=== PATIENT | female | born 2000 | race Caucasian/White ===

== ENCOUNTER 2019-10-17 18:42 | Inpatient (IN) | payer OTHER, SELFPAY ==
--- NOTE | ~2019-10-17 | XR_ITS ---
EXAMINATION: XR chest 1V portable 10/17/2019 19:52 INDICATION: Shortness of breath, nausea and vomiting PROCEDURE: AP portable chest COMPARISON: 11/23/2008 FINDINGS: The lungs are clear. The cardiomediastinal silhouette is within normal limits. There are no pleural effusions. There is no pneumothorax suspected. IMPRESSION: 1: NO ACUTE CARDIOPULMONARY DISEASE. Reviewed, dictated and finalized at location A.
[2019-10-17 18:55] VITALS: BP 115/62; PULSE 127; RESP 18; TEMP 37.6; O2SAT 97
--- NOTE | 2019-10-17 19:14 | ED.GENADULT ---
HPI - General Adult General Chief complaint: Recheck/Abnormal Lab/Rx Stated complaint: N/V DIABETIC ACCUCK 400'S Time Seen by Provider: 10/17/19 19:05 Source: patient History of Present Illness HPI narrative: Patient is a 19 y/o female complaining of nausea and vomiting since this morning. She states that she vomited greenish material. There is no alleviating or exacerbating factor. She has no abdominal pain or diarrhea. She has mild SOB and cough. She has no fever. She is on insulin pump for diabetes. Related Data Allergies Allergy/AdvReac Type Severity Reaction Status Date / Time No Known Allergies Allergy Verified 10/17/19 19:24 Review of Systems Constitutional: Constitutional: Denies chills, Denies fever(s), Denies headache(s) and Denies weakness Eyes: Eyes: Denies blurry vision ENT: Denies headache(s) and Denies neck pain Cardiovascular: Cardiovascular: Denies chest pain and Reports dyspnea Respiratory: Respiratory: Denies cough and Reports dyspnea Gastrointestinal: Gastrointestinal: Denies abdominal pain, Denies diarrhea, Reports nausea and Reports vomiting Genitourinary: Genitourinary: Denies hematuria and Denies dysuria Musculoskeletal: Musculoskeletal: Denies back pain and Denies neck pain Neurologic: Denies headache(s) and Denies weakness [facility] Past Medical History Medical History (Updated 10/17/19 @ 22:08 by Patricia Patrick MD) Type 1 diabetes mellitus Surgical History Surgical History (Updated 10/17/19 @ 21:02 by Renetta Patterson PA-C) No history of previous surgery Family History Family History (Updated 10/17/19 @ 21:03 by Renetta Patterson PA-C) Mother Hypothyroidism Hypertension Father Hypertension Social History Social History (Updated 10/17/19 @ 21:03 by Renetta Patterson PA-C) Social History: The patient lives with her family in [place], [place]. 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 She is a lifelong nonsmoker and denies alcohol and illicit substance abuse. She designates her mom, Radha Olmos, as her surrogate decision maker and she wishes to be a full code. Gender identity (if verbalized by the patient): Female Exam Const: General: no acute distress and well developed Orientation/consciousness: oriented to person, oriented to place, oriented to time and patient oriented x3 HENMT: Head: normocephalic Ears: external ears normal General nose exam: Normal external nose present Eyes: General: appearance normal, both eyes and all related structures Conjunctivae: conjunctivae normal Neck: Neck: normal visual inspection and full ROM Chest: Chest palpation & inspection: normal inspection of the chest and no tenderness Resp: Effort & Inspection: normal respiratory effort Auscultation: clear to auscultation bilaterally Cardio: Rate: tachycardic Rhythm: regular rhythm GI: GI Palp: No abdominal tenderness and Yes Soft to palpation Skin: General skin exam: normal color and turgor normal Neuro: General: oriented to person, oriented to place, oriented to time and patient oriented x3 Cognition (Neuro): normal cognition Extrem: General: normal to inspection, full ROM and no pedal edema Psych: Appearance: grossly normal Mental Status: mental status grossly normal Affect: normal affect Course Consultations Consultation #1: Discussed with IRINA Jackson, who agrees to Dr. Khoury. Date: 10/17/19 Time: 19:57 Consultation #2: Discussed with Dr. Maciel, who agrees to consult. Date: 10/17/19 Vital Signs Vital signs: Vital Signs Temperature 37.6 C H 10/17/19 18:55 Pulse Rate 127 H 10/17/19 18:55 Respiratory Rate 18 10/17/19 18:55 Blood Pressure 115/62 10/17/19 18:55 Pulse Oximetry 97 10/17/19 18:55 Temperature 37.6 C H 10/17/19 18:55 Pulse Rate 127 H 10/17/19 18:55 Respiratory Rate 18 10/17/19 18:55 Blood Pressure 115/62 10/17/19 18:55 Pulse Oximetry 97 10/17/19 18:55 Medical D
--- NOTE | 2019-10-17 19:17 | ECG_ITS ---
Measurements Intervals [place] Rate: 105 P: 62 IA: 148 QRS: 55 QRSD: 87 T: 30 QT: 321 QTc: 426 Interpretive Statements SINUS TACHYCARDIA POSSIBLE LEFT ATRIAL ENLARGEMENT BORDERLINE T WAVE ABNORMALITY- ANTERIOR LEADS BORDERLINE ECG Electronically Signed On 10-18-2019 7:22:55 CDT by Ceferino Cuellar D.O.
[2019-10-17 19:27] LABS: Basophils Absolute Auto 0.1 K/mm3 (0.0-0.1); Basophils Percent Auto 0.2 % (0.2-1.2); Hematocrit 41.7 % (37.0-47.0); Hemoglobin 14.5 g/dL (12.0-15.0); Immature Granulocyte Absolute 0.17 K/mm3 (0.00-0.031); Immature Granulocyte Percent A 0.7 % (0-0.5); Lymphocytes Absolute Auto 0.81 K/mm3 (0.9-3.2); Lymphocytes Percent Auto 3.5 % (18.3-44.2); Mean Corpuscular HGB Conc 34.8 g/dl (32-36); Mean Corpuscular Hemoglobin 31.8 pg (26-34); Mean Corpuscular Volume 91.4 fl (80-100); Mean Platelet Volume 12.2 fl (7.4-10.4); Monocytes Absolute Auto 0.7 K/mm3 (0.1-0.6); Neutrophils Absolute Auto 21.7 K/mm3 (1.3-6.7); Neutrophils Percent Auto 92.6 % (45.5-73.1); Platelet Count Result 257 k/mm3 (150-375); Red Blood Count 4.56 M/mm3 (4.2-5.4); Red Cell Distribution Width 11.9 % (11.5-14.5); White Blood Count 23.4 K/mm3 (4.5-10.0)
[2019-10-17 19:36] LABS: Alveolar/Arterial O2 Gradient 19.3 mmHg; Fractional Inspired Oxygen 21 %; Oxygen Content ABG 18.2 %vol (16.0-22.0); Oxygen Saturation ABG 96.7 % (95.0-100.0); Oxyhemoglobin 96.1 % THb (90.0-100.0); PCO2 ABG 29.3 mmHg (35.0-45.0); PO2 ABG 95.3 mmHg (80.0-100.0); PO2 FiO2 Ratio Arterial Blood 4.54 %; Total Hemoglobin 13.4 g/dL (12.0-18.0); pH ABG 7.297 (7.350-7.450)
[2019-10-17 19:37] LABS: Device ROOM AIR; Modified Allen's Test Pass; Site Drawn LEFT RADIAL
[2019-10-17 19:38] LABS: Alanine Aminotransferase 23 U/L (4-35); Albumin Level 5.1 g/dL (3.5-5.1); Alkaline Phosphatase 116 U/L (38-126); Anion Gap 21 mmol/L (8-16); Aspartate Amino Transferase 24 U/L (14-36); Bilirubin,Total 1.5 mg/dL (0.2-1.3); Blood Urea Nitrogen 20 mg/dL (7-17); Calcium 10.2 mg/dL (8.4-10.2); Carbon Dioxide 15 mmol/L (22-30); Chloride 98 mmol/L (98-107); Estimated CRCL calculation 91 ml/min; Estimated Glomerular Filt Rate > 60; Glucose 423 mg/dL (65-105); Magnesium 1.7 mg/dL (1.6-2.3); Potassium 4.5 mmol/L (3.4-5.0); Sodium 134 mmol/L (137-145)
[2019-10-17 19:46] LABS: Add Urine Microscopic? YES; Appearance Urine Clear (Clear); Bilirubin Urine Negative (Negative); Blood Urine 3+ (Negative); Color Urine Straw (Yellow); Glucose Urine UA 3+ mg/dL (Negative); Ketones Urine 2+ mg/dL (Negative); Leukocyte Esterase Ur Negative LEU/UL (Negative); Nitrate Urine Negative (Negative); Protein Urine Negative (Negative); Specific Grav Ur 1.028 (1.001-1.035); Squamous Epithelial Cell Urine Rare /hpf (Few); Urobilinogen Urine Negative mg/dL (<2.0); WBC Urine 0-3 /hpf
[2019-10-17] MEDS: METOCLOPRAMIDE HCL INJ 10 MG/2 ML VIAL (19:51)
[2019-10-17] MEDS: SODIUM CHLORIDE 0.9% IV 1,000 ML 999 ML (19:51)
--- NOTE | 2019-10-17 19:51 | PC.NURSE ---
frances from dr ozuna for ns 1l bolus x1 reglan 10 ivp x1
--- NOTE | 2019-10-17 20:00 | PM.IMHP ---
H&P: HPI History of Present Illness Date/Time: 10/17/19 20:30. The patient was seen evaluated in the emergency department. Chief complaint: dka Narrative: Inga Olmos is a very pleasant 19-year-old female with type 1 diabetes mellitus who presented to the emergency department earlier this evening via private vehicle from home for evaluation of hyperglycemia, nausea, and vomiting. She was in her usual state of health when she went to bed last night and was wakened from sleep at approximately 03:00 with nausea and heartburn. She then began vomiting and at that time noticed that her glucose was much higher than usual. Initially she thought perhaps she was vomiting as she ate raw cookie dough the night before. Despite boluses of insulin, her glucose continued to rise. At that time she inspected her insulin pump site, and noticed that the pod that she had placed 3 days ago still had quite a bit of insulin in it and she assumes she was not getting insulin appropriately. In addition to the vomiting, she has had shortness of breath and feelings of racing heart. She has never been hospitalized for DKA before and reports her last hemoglobin A1c was 6.7%. She denies fever, chills, sweats, cold and flu symptoms, cough, diarrhea, and dysuria. No chest pain or pleuritic pain. Review of Systems Review of Systems: Narrative: Twelve systems were reviewed with pertinent positives and negatives as per HPI. No headache. She recently saw her eye doctor, maybe 3 weeks ago, and there were no signs of retinopathy. She also denies neuropathy and nephropathy. Her last menstrual period was last Thursday. Except as documented, all other systems were reviewed and are negative. [facility] Past Medical History Medical History (Updated 10/17/19 @ 21:05 by Renetta Patterson PA-C) Type 1 diabetes mellitus Surgical History Surgical History (Updated 10/17/19 @ 21:02 by Renetta Patterson PA-C) No history of previous surgery Family History Family History (Updated 10/17/19 @ 21:03 by Renetta Patterson PA-C) Mother Hypothyroidism Hypertension Father Hypertension Social History Social History (Updated 10/17/19 @ 21:03 by Renetta Patterson PA-C) Social History: The patient lives with her family in [place], [place]. 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 She is a lifelong nonsmoker and denies alcohol and illicit substance abuse. She designates her mom, Radha Olmos, as her surrogate decision maker and she wishes to be a full code. Gender identity (if verbalized by the patient): Female Meds Home Medications and Allergies Allergies Allergy/AdvReac Type Severity Reaction Status Date / Time No Known Allergies Allergy Verified 10/17/19 19:24 Vital Signs Vital Signs - 24 hr 10/17/19 18:55 Temperature 99.7 F H Pulse Rate 127 H Respiratory Rate 18 Blood Pressure 115/62 Pulse Oximetry 97 Exam Narrative: Exam Narrative: General: Well-developed female sitting up in bed in no acute distress. Nontoxic in appearance. Weight: 75 kg. BMI: 26.7. HEENT: Normocephalic, atraumatic. PERRL, EOMI. Sclerae anicteric. Oral mucosa tacky. Neck: Supple. Respiratory: Lungs are clear to auscultation bilaterally. Cardiovascular: Tachycardic with S1-S2. Telemetry shows sinus tachycardia. Gastrointestinal: Abdomen is soft, nontender, and nondistended with positive bowel sounds. Skin: Warm and dry. No rash or lesions on limited exam. Extremities: No cyanosis, clubbing, or edema. Radial and pedal pulses intact. Neurological: Alert. Cranial nerves 2-12 are grossly intact. No gross focal deficits to casual conversation. Psychiatric: Pleasant and cooperative with normal mood and affect. Judgment and insight intact. H&P: Results Labs Labs: Short CBC 10/17/19 Range/Units 19:15 WBC 23.4 H (4.5-10.0) K/mm3 Hgb 14.5 (12.0-15.0) g/dL Hct 41.7 (37.0-47.0) % Plt Count 257 (150-375
[2019-10-17 20:19] LABS: Glucose Point of Care 404 (65-105)
[2019-10-17] MEDS: INSULIN HUMAN REGULAR (*BKC) 100 UNITS in SODIUM CHLORIDE 0.9% IV 99 ML 5.2 UNITS IV CONT (20:21)
[2019-10-17 20:25] LABS: Glucose Point of Care 318 (65-105)
[2019-10-17 20:27] LABS: Beta-Hydroxybutyrate/Acetoacetate 3.87 mmol/L (0.02-0.27)
[2019-10-17 21:24] LABS: Glucose Point of Care 273 (65-105)
[2019-10-17 21:25] LABS: Hemoglobin A1C 6.9 % (<5.7)
--- NOTE | 2019-10-17 23:07 | PC.NURSE ---
Report received from ARIS Martinez.
[2019-10-17 23:12] LABS: Glucose Point of Care 173 (65-105)
[2019-10-17 23:30] VITALS: BP 119/65; PULSE 105; RESP 17; O2SAT 99
[2019-10-17 23:41] VITALS: BMI 25.2
[2019-10-17 23:45] VITALS: BP 121/71; PULSE 110; RESP 21; TEMP 36.9; O2SAT 100
[2019-10-17] MEDS: INSULIN HUMAN REGULAR (*BKC) 100 UNITS in SODIUM CHLORIDE 0.9% IV 99 ML IV CONT (23:45)
--- NOTE | 2019-10-17 23:54 | PC.NURSE ---
2345 Admitted to ICU 8 at 2345. Reviewed call light/admission packet/visiting hours etc.
[2019-10-18] MEDS: KCL 20 MEQ/D5/0.45% SOD CHL 1,000 ML 150 ML IV CONT (00:21)
[2019-10-18 00:25] LABS: Anion Gap 14 mmol/L (8-16); Blood Urea Nitrogen 20 mg/dL (7-17); Calcium 9.8 mg/dL (8.4-10.2); Carbon Dioxide 20 mmol/L (22-30); Chloride 103 mmol/L (98-107); Estimated CRCL calculation 103 ml/min; Estimated Glomerular Filt Rate > 60; Glucose 181 mg/dL (65-105); Magnesium 1.7 mg/dL (1.6-2.3); Phosphorus 4.4 mg/dL (2.5-4.5); Potassium 4.1 mmol/L (3.4-5.0); Sodium 137 mmol/L (137-145)
[2019-10-18 00:30] VITALS: BP 129/77; PULSE 105; RESP 21; O2SAT 100
[2019-10-18 00:30] LABS: Glucose Point of Care 144 (65-105)
[2019-10-18 02:00] VITALS: BP 125/61; PULSE 109; RESP 19; O2SAT 100
[2019-10-18 02:00] LABS: Glucose Point of Care 147 (65-105)
[2019-10-18 03:12] LABS: Glucose Point of Care 155 (65-105)
[2019-10-18 04:00] VITALS: BP 119/61; PULSE 85; PULSE 97; RESP 21; TEMP 36.9; O2SAT 100
[2019-10-18 04:16] LABS: Glucose Point of Care 149 (65-105)
[2019-10-18 04:25] LABS: Basophils Percent Auto 0.2 % (0.2-1.2); Eosinophils Percent Auto 0.1 % (0-4.4); Hematocrit 34.6 % (37.0-47.0); Hemoglobin 12.3 g/dL (12.0-15.0); Immature Granulocyte Absolute 0.08 K/mm3 (0.00-0.031); Immature Granulocyte Percent A 0.5 % (0-0.5); Lymphocytes Absolute Auto 1.83 K/mm3 (0.9-3.2); Lymphocytes Percent Auto 11.9 % (18.3-44.2); Mean Corpuscular HGB Conc 35.5 g/dl (32-36); Mean Corpuscular Hemoglobin 31.6 pg (26-34); Mean Corpuscular Volume 88.9 fl (80-100); Mean Platelet Volume 11.6 fl (7.4-10.4); Monocytes Absolute Auto 1.1 K/mm3 (0.1-0.6); Monocytes Percent Auto 7.4 % (2.6-8.5); Neutrophils Absolute Auto 12.3 K/mm3 (1.3-6.7); Neutrophils Percent Auto 79.9 % (45.5-73.1); Platelet Count Result 227 k/mm3 (150-375); Red Blood Count 3.89 M/mm3 (4.2-5.4); Red Cell Distribution Width 11.9 % (11.5-14.5); White Blood Count 15.4 K/mm3 (4.5-10.0)
[2019-10-18 04:48] LABS: Alanine Aminotransferase 16 U/L (4-35); Albumin Level 4.1 g/dL (3.5-5.1); Alkaline Phosphatase 73 U/L (38-126); Anion Gap 10 mmol/L (8-16); Aspartate Amino Transferase 18 U/L (14-36); Bilirubin,Total 0.6 mg/dL (0.2-1.3); Blood Urea Nitrogen 18 mg/dL (7-17); Calcium 8.8 mg/dL (8.4-10.2); Carbon Dioxide 21 mmol/L (22-30); Chloride 104 mmol/L (98-107); Estimated CRCL calculation 118 ml/min; Estimated Glomerular Filt Rate > 60; Glucose 167 mg/dL (65-105); Magnesium 1.7 mg/dL (1.6-2.3); Potassium 4.2 mmol/L (3.4-5.0); Sodium 135 mmol/L (137-145)
[2019-10-18 05:24] LABS: Glucose Point of Care 145 (65-105)
[2019-10-18] MEDS: INSULIN GLARGINE (*BKC) 100 UNITS/ML 25 UNITS SUB-Q (06:16)
[2019-10-18 06:20] LABS: Glucose Point of Care 146 (65-105)
[2019-10-18 06:33] LABS: Hemoglobin A1C 6.9 % (<5.7)
[2019-10-18 06:37] LABS: Anion Gap 8 mmol/L (8-16); Blood Urea Nitrogen 17 mg/dL (7-17); Calcium 8.6 mg/dL (8.4-10.2); Carbon Dioxide 21 mmol/L (22-30); Chloride 106 mmol/L (98-107); Estimated CRCL calculation 118 ml/min; Estimated Glomerular Filt Rate > 60; Glucose 154 mg/dL (65-105); Magnesium 1.6 mg/dL (1.6-2.3); Potassium 4.1 mmol/L (3.4-5.0); Sodium 135 mmol/L (137-145)
[2019-10-18 08:00] VITALS: BP 110/69; PULSE 99; RESP 16; TEMP 37.2; O2SAT 100
[2019-10-18] MEDS: SODIUM CHLORIDE 0.9% IV 1,000 ML 999 ML IV CONT (08:05)
[2019-10-18] MEDS: FAMOTIDINE 20 MG/2 ML VIAL IV PUSH (08:09)
[2019-10-18 08:19] LABS: Glucose Point of Care 170 (65-105)
[2019-10-18 08:24] LABS: Anion Gap 8 mmol/L (8-16); Blood Urea Nitrogen 16 mg/dL (7-17); Calcium 8.5 mg/dL (8.4-10.2); Carbon Dioxide 23 mmol/L (22-30); Chloride 104 mmol/L (98-107); Estimated CRCL calculation 103 ml/min; Estimated Glomerular Filt Rate > 60; Glucose 166 mg/dL (65-105); Sodium 135 mmol/L (137-145)
--- NOTE | 2019-10-18 09:38 | WPDCNINT ---
Assessment and Plan Assessment and plan (1) DKA (diabetic ketoacidoses): Qualifiers: Diabetes mellitus complication detail: without coma Diabetes mellitus type: type 1 Qualified Code(s): E10.10 - Type 1 diabetes mellitus with ketoacidosis without coma Code(s): E11.10 - Type 2 diabetes mellitus with ketoacidosis without coma Status: Acute Assessment and Plan: patient presented with hyperglycemia, nausea, vomiting and was diagnosed with DKA in the ER. Given 1 L IV fluid bolus, started on insulin infusion transferred to the ICU for further management - anion gap closed this morning along with improvement in blood sugars, patient was transition to long-acting insulin and sliding scale insulin. - Started on diabetic diet - hemoglobin A1c 6.9 - will give additional IV fluid bolus patient has had low urine output (2) Leukocytosis: Qualifiers: Leukocytosis type: unspecified Qualified Code(s): D72.829 - Elevated white blood cell count, unspecified Code(s): D72.829 - Elevated white blood cell count, unspecified Status: Acute Assessment and Plan: leukocytosis most likely reactive - UA was unremarkable - chest x-ray with no acute cardiopulmonary disease - WBC count improving this morning, will continue to monitor (3) DVT prophylaxis: Code(s): Z29.9 - Encounter for prophylactic measures, unspecified Status: Acute Assessment and Plan: SCDs Additional Plan discuss with patient updated her with her condition and plan of care. She is aware that she will be moving out of the ICU. Code status: Full code critical care time spent: 43 minutes Due to a high probability of clinically significant, life threatening deterioration, the patient required my highest level of preparedness to intervene emergently and I personally spent this critical care time directly and personally managing the patient. This critical care time included obtaining a history; examining the patient; pulse oximetry; ordering and review of studies; arranging urgent treatment with development of a management plan; evaluation of patient's response to treatment; frequent reassessment; and discussions with other providers. It was exclusive of separately billable procedures and treating other patients and teaching time. Please see Assessment and Plan section and the rest of the note for further information on patient assessment and treatment Principal Automation Engineer Consult Note Consult date: 10/18/19 Time Seen: 07:09 Reason for consult: diabetic ketoacidosis, nausea, vomiting HPI: Igna Olmos is a 19 year old female 19-year-old female with significant past medical history of diabetes type 1 on insulin pump presented to the ED on 10/17/2019 complaining of nausea, vomiting hyperglycemia. Patient denies any abdominal pain or diarrhea but complained of mild shortness of breath. Denies any fevers it stated she felt her insulin pump was not connected correctly leading to elevated blood sugars and her symptoms. Patient has never been admitted to the hospital for DKA. Patient was given 1 L IV fluid bolus in the ER and started on insulin infusion and transferred to the ICU for further management. Patient seen and examined this morning in the ICU. Her anion gap has closed, blood sugars much improved, patient was transition to long-acting insulin and sliding scale insulin. Patient denies any nausea, vomiting, abdominal pain, shortness of breath, chest pain. States she feels back to be her baseline. Patient is hemodynamically stable Review of Systems Review of Systems: All systems reviewed & are unremarkable except as noted in HPI and below PMFSH Past Medical History Medical History (Updated 10/18/19 @ 09:44 by Betsy Maciel MD) Type 1 diabetes mellitus Surgical History Surgical History (Updated 10/17/19 @ 21:02 by Renetta Patterson PA-C) No history of previous surgery Family History Famil
[2019-10-18 12:07] LABS: Glucose Point of Care 230 (65-105)
[2019-10-18] MEDS: INSULIN ASPART (*BKC) 100 UNITS/ML SUB-Q (12:15)
--- NOTE | 2019-10-18 15:37 | PM.DS ---
DS: Admitting Diagnosis Admitting Diagnosis Admitting Diagnosis: dka DS: Discharge Diagnosis Discharge Diagnosis (1) Diabetic ketoacidosis: Code(s): E11.10 - Type 2 diabetes mellitus with ketoacidosis without coma Status: Acute Assessment and Plan: With hyperglycemia, ketosis, metabolic acidosis, and anion gap of 21. It sounds as though her insulin pump site was not working correctly. Pt sugars are better pt discharged back on her insulin pump (2) Type 1 diabetes mellitus: Code(s): E10.9 - Type 1 diabetes mellitus without complications Status: Acute Assessment and Plan: Diagnosed at the age of 13. Hemoglobin A1c is 6.9 Resume insulin pump upon resolution of DKA. (3) Leukocytosis: Qualifiers: Leukocytosis type: unspecified Qualified Code(s): D72.829 - Elevated white blood cell count, unspecified Code(s): D72.829 - Elevated white blood cell count, unspecified Status: Acute Assessment and Plan: Maybe a stress response, she gives no history to suggest underlying infection. DS: Summary Time Spent with Patient Time attestation: Total time spent providing and/or coordinating discharge services:38 minutes on day of discharge Exam Const: General: other (Young lady very pleasant and smart ) Nutritional Appearance: well nourished HENMT: Head: normocephalic Eyes: General: appearance normal, both eyes and all related structures Pupils: Equal, round and reactive pupils present Neck: Neck: supple Chest: Chest palpation & inspection: normal inspection of the chest Resp: Effort & Inspection: normal respiratory effort Skin: General skin exam: normal color and dry skin Neuro: Cranial nerves: Yes CN's II-XII intact bilaterally and Yes Equal, round and reactive pupils present Cognition (Neuro): normal cognition Speech: normal speech Motor exam (neuro): 5/5 motor strength present throughout Extrem: General: normal to inspection Psych: Appearance: grossly normal Mental Status: mental status grossly normal DS: Data Data Completed and Pending Labs on day of discharge: Labs from last 24 hours 10/18/19 10/18/19 10/18/19 12:05 08:17 07:51 WBC RBC Hgb Hct MCV MCH MCHC RDW Plt Count MPV Immature Gran % (Auto) Neut % (Auto) Lymph % (Auto) [place] % (Auto) Eos % (Auto) Baso % (Auto) Lymph # (Auto) [place] # (Auto) Eos # (Auto) Baso # (Auto) Abs Immat Gran (auto) Absolute Neuts (auto) Absolute Nucleated RBC Nucleated RBC % Puncture Site ABG pH ABG pCO2 ABG pO2 ABG PO2/FiO2 Ratio ABG HCO3 ABG O2 Saturation ABG O2 Content ABG Base Excess A-a Gradient Oxyhemoglobin Total Hemoglobin O2 Delivery Device O2 Liters/Min FiO2 Sodium 135 L Potassium 4.0 Chloride 104 Carbon Dioxide 23 Anion Gap 8 BUN 16 Creatinine 0.70 Estim Creat Clear Calc 103 Estimated GFR > 60 Glucose 166 H POC Capillary Glucose 230 H 170 H Hemoglobin A1c Calcium 8.5 Phosphorus Magnesium Total Bilirubin AST ALT Alkaline Phosphatase Total Protein Albumin Beta-Hydroxybutyrate/Acetoacetate TSH (Reflex) Urine Color Urine Appearance Urine pH Ur Specific [place] Urine Protein Urine Glucose (UA) Urine Ketones Ur Blood (Man) Urine Nitrate Urine Bilirubin Urine Urobilinogen Leukocyte Esterase Rfl Urine RBC Urine WBC Ur Squamous Epith Cells Hyaline Casts 10/18/19 10/18/19 10/18/19 06:15 06:15 06:14 WBC RBC Hgb Hct MCV MCH MCHC RDW Plt Count MPV Immature Gran % (Auto) Neut % (Auto) Lymph % (Auto) [place] % (Auto)
== END 2019-10-18 13:46 | disposition home or self-care (01) | DRG 639 ==
LOC: ANHED 20:05 → ANHICU 22:08
PROVIDERS: Internal Medicine; Physician Assistant; Admitting Provider Internal Medicine; Emergency Provider Emergency Medicine; PCP Family Medicine; Visit Provider Family Medicine
DX: E10.10 Type 1 diabetes mellitus with ketoacidosis without coma (principal); D72.829 Elevated white blood cell count, unspecified
CPT/HCPCS: 36415; 36600; 71045; 80048; 80053; 81001; 81025; 82010; 82805; 82948; 83036; 83735; 84100; 84443; 85025; 93005; 96374; 99291; J1815; J2765; J3480; J7030